=== PATIENT | female | born 1965 | race Caucasian/White ===

== ENCOUNTER 2019-05-04 11:16 | Emergency (ER) | payer OTHER ==
[~2019-05-04] VITALS: Ht 167.6 cm; Wt 63.5 kg
[2019-05-04] MEDS ORDERED: ASPIR 8181 MG PO (11:48)
[2019-05-04] MEDS ORDERED: TAMBOCOR PO (11:48)
[2019-05-04] MEDS ORDERED: METOPROLOL SUCC25 MG PO (11:48)
[2019-05-04] MEDS ORDERED: XANAX2 MG PO (11:49)
== END 2019-05-04 16:02 | disposition home or self-care (01) ==
LOC: ER 11:16
DX: S13.4XXA Sprain of ligaments of cervical spine, initial encounter (principal); S20.221A Contusion of right back wall of thorax, initial encounter; M25.511 Pain in right shoulder; V49.88XA Car occupant (driver) (passenger) injured in other specified transport accidents, initial encounter; Y93.89 Activity, other specified; Y92.488 Other paved roadways as the place of occurrence of the external cause; Y99.8 Other external cause status

== ENCOUNTER 2021-07-13 12:10 | Outpatient (CLI) | payer OTHER ==
[~2021-07-13 12:10] MED LIST: ASPIR 8181 MG PO; METOPROLOL SUCC25 MG PO; TAMBOCOR PO; XANAX2 MG PO
== END 2021-07-13 12:14 | disposition home or self-care (01) ==
LOC: LAB 12:10
PROVIDERS: ATTEND Anesthesiology Pain Medicine
DX: E03.9 Hypothyroidism, unspecified (principal); F33.9 Major depressive disorder, recurrent, unspecified; M81.0 Age-related osteoporosis without current pathological fracture; N95.1 Menopausal and female climacteric states; G47.00 Insomnia, unspecified; R79.1 Abnormal coagulation profile

== ENCOUNTER 2021-07-26 11:05 | Outpatient (CLI) | payer OTHER | END 2021-07-26 11:14 | disposition home or self-care (01) | LOC: MAMO-SONO 11:05 | PROVIDERS: ATTEND Obstetrics & Gynecology | DX: N64.4 Mastodynia (principal) ==

== ENCOUNTER 2021-09-19 13:04 | Outpatient (CLI) | payer OTHER | END 2021-09-19 13:05 | disposition home or self-care (01) | LOC: LAB 13:04 | DX: B34.9 Viral infection, unspecified (principal); J98.8 Other specified respiratory disorders; Z20.828 Contact with and (suspected) exposure to other viral communicable diseases; R05.9 Cough, unspecified; R06.00 Dyspnea, unspecified; D64.9 Anemia, unspecified; M81.8 Other osteoporosis without current pathological fracture; Z20.822 Contact with and (suspected) exposure to COVID-19; Z11.52 Encounter for screening for COVID-19 ==